=== PATIENT | male | born 1960 | race African-American/Black ===

== ENCOUNTER 2017-09-10 10:08 | Emergency (ER) | payer SELFPAY ==
--- NOTE | 2017-09-10 11:10 | RAD ---
AP VIEW OF CHEST: Date: 09/10/17 INDICATION: High risk complaint of chest pain. COMPARISON: Prior exam dated 01/31/09 and 12/28/09. FINDINGS: Lungs are clear. The cardiomediastinal silhouette is within normal limits. No acute osseous abnormali ty is evident. IMPRESSION: No acute cardiopulmonary process. POS: [facility]
[2017-09-10 11:18] LABS: #Basophils 0.1 thou/uL (0.0-0.2); #Eosinphils 0.4 thou/uL (0.0-0.7); #Lymphocytes 2.1 thou/uL (1.20-3.40); #Monocytes 0.3 thou/uL (0.11-0.59); #Neutrophils 1.6 thou/uL (1.40-6.50); %Basophils 1.3 % (0.0-1.0); %Eosinophils 8.5 % (0.0-10.0); %Lymphocytes 47.3 % (21.0-51.0); %Monocytes 7.3 % (0.0-10.0); Hematocrit 44.9 % (42.0-52.0); Macrocytosis MODERATE=16-30 cells (100X) (0-5/hpf); Mean Platelet Volume 7.6 fL (7.4-10.4); Red Blood Cell (RBC) Count 4.07 mill/uL (4.70-6.10); White Blood Cell (WBC) Count 4.5 thou/uL (4.8-10.8)
[2017-09-10 11:21] LABS: Troponin I 0.012 ng/mL (< 0.028)
[2017-09-10 11:57] LABS: ALT (SGPT) 17 U/L (8-55); AST (SGOT) 25 U/L (5-34); Alkaline Phosphatase 56 U/L (40-150); Anion Gap 6 mmol/L (10-20); BUN (Urea Nitrogen) 8 mg/dL (8.4-25.7); Bilirubin, Total 0.7 mg/dL (0.2-1.2); CK (CPK) 191 U/L (30-200); Calc. Creatinine Clearance 0 mL/min (70-130); Calcium 9.5 mg/dL (7.8-10.44); Carbon Dioxide 27 mmol/L (22-29); Chloride 110 mmol/L (98-107); Estimated GFR-MDRD Greater than 90; Globulin 3.2 g/dL (2.4-3.5)
== END 2017-09-10 12:52 | disposition home or self-care (01) ==
LOC: ERS 10:08
DX: J40 Bronchitis, not specified as acute or chronic (principal); F17.210 Nicotine dependence, cigarettes, uncomplicated
CPT/HCPCS: 36415; 71010; 80053; 82553; 84145; 84484; 85025; 93005; 99406

== ENCOUNTER 2018-02-23 22:16 | Inpatient (IN) | payer SELFPAY ==
[~2018-02-23 22:16] MED LIST: ISOVUE-370 76%-LOCM 1 ML ONE
[2018-02-23 23:12] LABS: Hemoglobin 14.1 g/dL (14.0-18.0); Mean Corpuscular HGB CONC 33.4 g/dL (32.0-36.0); Mean Corpuscular Hemoglobin 36.6 pg (27.0-31.0); Mean Platelet Volume 6.7 fL (7.4-10.4); Platelet Count 253 thou/uL (130-400); RBC Distribution Width 10.9 % (11.5-14.5); Red Blood Cell (RBC) Count 3.85 mill/uL (4.70-6.10); White Blood Cell (WBC) Count 5.6 thou/uL (4.8-10.8)
[2018-02-23 23:29] LABS: ALT (SGPT) 43 U/L (8-55); AST (SGOT) 60 U/L (5-34); Albumin 3.9 g/dL (3.5-5.0); Alkaline Phosphatase 54 U/L (40-150); Anion Gap 8 mmol/L (10-20); BUN (Urea Nitrogen) 14 mg/dL (8.4-25.7); Bilirubin, Total 0.4 mg/dL (0.2-1.2); CK (CPK) 190 U/L (30-200); Calc. Creatinine Clearance 0 mL/min (70-130); Calcium 8.9 mg/dL (7.8-10.44); Carbon Dioxide 25 mmol/L (22-29); Chloride 110 mmol/L (98-107); Estimated GFR-MDRD Greater than 90; Globulin 3.2 g/dL (2.4-3.5); Glucose 91 mg/dL (70-105); Potassium 4.3 mmol/L (3.5-5.1); Protein, Total 7.1 g/dL (6.0-8.3); Sodium 139 mmol/L (136-145)
[2018-02-23 23:30] LABS: CKMB 2.2 ng/mL (0-6.6); Troponin I Less than 0.010 ng/mL (< 0.028)
[2018-02-23] MEDS ORDERED: hydrALAZINE 20 MG/ML VIAL ONE (23:33)
--- NOTE | 2018-02-23 23:36 | CT ---
CT BRAIN WITHOUT CONTRAST: 02/23/18 HISTORY: Headache and hypertension. COMPARISON: CT brain from 2012. FINDINGS: There is abnormal subarachnoid hemorrhage in the basilar cisterns. There is hemorrhage along the tent orium cerebelli as well as the posterior falx. No loss of pan-white matter differentiation. IMPRESSION: Basilar cistern subarachnoid hemorrhage and extending along the posterior flax and tentorium cerebell i. Findings are concerning for an aneurysm rupture. Code CHAPARRITA - Marin Guerrier, 11:30 p.m. POS: [facility]
[2018-02-23 23:42] LABS: #Basophils 0.1 thou/uL (0.0-0.2); #Eosinphils 0.3 thou/uL (0.0-0.7); #Monocytes 0.4 thou/uL (0.11-0.59); #Neutrophils 2.8 thou/uL (1.40-6.50); %Basophils 1.4 % (0.0-1.0); %Lymphocytes 34.8 % (21.0-51.0); %Monocytes 7.2 % (0.0-10.0); %Neutrophils 50.6 % (42.0-75.0); MDiff Complete? YES; Macrocytosis SLIGHT = 6-15 cells (100X) (0-5/hpf)
[2018-02-24] MEDS ORDERED: Promethazine 25 MG TAB PO PRN (00:17)
[2018-02-24] MEDS ORDERED: Acetaminophen 500 MG TAB ONE (00:17)
[2018-02-24] MEDS ORDERED: Acetaminophen 325 MG TAB PO PRN (00:17)
[2018-02-24] MEDS ORDERED: Ondansetron HCl/PF 4 MG/2 ML Vial IVP PRN (00:17)
[2018-02-24] MEDS ORDERED: Milk Of Magnesia 30 ML UDCUP PO PRN (00:17)
[2018-02-24] MEDS ORDERED: diphenhydrAMINE 50 MG/ML VIAL IVP PRN (00:17)
[2018-02-24] MEDS ORDERED: Docusate 100 MG CAP PO PRN (00:17)
[2018-02-24] MEDS ORDERED: Mag-Al 1200 mg/1200 mg/30 ML UDCUP PO PRN (00:17)
[2018-02-24] MEDS ORDERED: Morphine 10 MG/ML VIAL ONE (00:58)
[2018-02-24] MEDS ORDERED: Aminocaproic Acid 5 GM in Sodium Chloride 0.9% 250 ML 250 ML IV SCH ×2 (01:00→02:00)
[2018-02-24 01:49] VITALS: BMI 19.1
[2018-02-24] MEDS: niMODipine 30 MG CAP PO SCH ×5 (02:27→17:21)
[2018-02-24] MEDS: Sodium Chloride 0.9% 1,000 ML IV SCH ×2 (02:29→12:38)
[2018-02-24 03:04] LABS: Troponin I Less than 0.010 ng/mL (< 0.028)
[2018-02-24] MEDS: Morphine 4 MG/ML VIAL SLOW IVP PRN ×2 (03:31→08:29)
[2018-02-24] MEDS: HYDROcodone/Acetaminophen 7.5/325 mg Tablet PO PRN ×3 (04:06→21:14)
[2018-02-24 05:43] LABS: Troponin I Less than 0.010 ng/mL (< 0.028)
--- NOTE | 2018-02-24 05:58 | HP ---
This is Kelley Ayala PA-C with neurosurgery service. ATTENDING PHYSICIAN: Dr. Devon Ha. HISTORY OF PRESENT ILLNESS: Patient is a 57-year-old male with past medical history of hypertension, who presented to the emergency department for evaluation of acute onset thunderclap headache, which began around 9:30 p.m. tonight with radiation into his neck while walking his dogs. He was evaluated with CT head on arrival, which is notable for diffuse subarachnoid blood located primarily in basila r cisterns consistent with subarachnoid hemorrhage. Neurosurgery was consulted for evaluation of the patient. I am seeing the patient at the bedside in the emergency department. He is A and O x4. Pu pils are equal and reactive to light. He has normal cranial nerve exam. No focal neurologic deficit s are appreciated. PAST MEDICAL HISTORY: Hypertension, noncompliant on medications. PAST SURGICAL HISTORY: Denies any prior surgeries. SOCIAL HISTORY: He is a daily drinker approximately 5 drinks per day. He does use drugs, abuses mar ijuana. He does smoke cigarettes 1 pack per day for the past 30 years. He is . ALLERGIES: No known drug allergies. REVIEW OF SYSTEMS: Per HPI. PHYSICAL EXAMINATION: VITAL SIGNS: BP 148/89, pulse is 59, respiration rate 16, O2 is 98% on room air. GENERAL: Awake, alert, no acute distress. HEAD: Normocephalic, atraumatic. EYES: PERRLA. Extraocular movements intact. ENT: Oral mucosa is pink, intact, and moist. He has normal voice. NECK: Nontender to palpation. He does have mild meningismus. RESPIRATORY: Symmetric chest expansion. No evidence of respiratory distress. CARDIOVASCULAR: Regular rate and rhythm. MUSCULOSKELETAL: Good muscle tone to bilateral upper and lower extremities. No focal motor weakness . NEURO: Alert and oriented x4. Normal speech. Normal cranial nerve exam. No focal motor weakness. ASSESSMENT AND PLAN: This is a 57-year-old -[place] male with a past medical history of hype rtension, noncompliant on medications, who presented tonight for thunderclap headache and was evaluat ed with CT which was found to have subarachnoid hemorrhage located primarily in the basilar cisterns. A CT is pending for further evaluation. I will admit the patient to the ICU for q.1 neuro checks a nd close monitoring. I have started the patient Amicar as well as Nimotop. Systolic blood pressure will be monitored closely with goal of less than 140. I have discussed this plan with Dr. Leland murphy ho is in agreement. Please reach out to Neurosurgery for additional questions or concerns.
--- NOTE | 2018-02-24 08:10 | PRG ---
DATE OF SERVICE: 02/24/2018 The patient was seen and examined. I agreed with Kelley Ayala's evaluation on 02/24/2018. Mr. De Los Santos is a 57-year-old man who had a thunderclap headache. There was a history of cocaine use. He is currently neurologically intact without focal findings. CT scan reveals subarachnoid hemorrha ge. This was stable on a follow up CT scan this morning. CT angiography was performed, but is of poor quality as the timing must have been off in the study. No aneurysm was visualized, but I do not think the study is conclusive. We will plan on repeat CT angiography today. We will advance the patient's diet. I discussed with t bud patient and his .
--- NOTE | 2018-02-24 08:15 | CON ---
DATE OF CONSULTATION: 02/24/2018 Don De Los Santos is a 57-year-old gentleman with history of heavy alcohol intake, history of regular coca ine intake, history of 2 packs a day smoking who has not been in the hospital except for a walking pn eum[place]. According to his he drinks a large quantity of beer. He went to the store yesterday, came back, got dizzy, lightheaded, fell down, had a severe headache. A CT of the head shows a subara chnoid hemorrhage. PAST MEDICAL HISTORY: As noted. No history of diabetes or hypertension. PAST SURGICAL HISTORY: None. CHRONIC MEDICATIONS: None. TOBACCO: As noted. ALCOHOL: Alcohol as noted. SOCIAL HISTORY: He is a mauro. REVIEW OF SYSTEMS: Otherwise, 10 point negative. PHYSICAL EXAMINATION: GENERAL: He is in the ICU, awake, alert, responsive. NEUROLOGIC: Stable. Moves all 4 extremities. VITAL SIGNS: Blood pressure 150/57, pulse is 57, sats 95% on room air, respiration rate 18. He is a febrile. CHEST: Chest reveals decreased breath sounds without any wheezing. CARDIAC: Normal S1, S2, no gallops. ABDOMEN: Soft, no masses. NEUROLOGIC: Awake, alert, responsive, moves all 4 extremities. No edema. LABORATORY: His white count is 5000, H&H 14 and 42, platelet count is 253. Electrolytes are normal. Liver function is normal. His CT brain from last night shows basilar subarachnoid hemorrhage. I do not see a chest x-ray that was taken. IMPRESSION: 1. Subarachnoid hemorrhage. 2. History of regular cocaine abuse. 3. History of heavy alcohol abuse. PLAN: The patient was started on Nimodipine 60 q.4h., nicardipine to keep his systolic as per the ne urosurgeon. X-ray is being ordered. Start him on some banana bag. Continue following in the ICU with Neurosurgery. Otherwise, supportive care. This is a consultation note in which 70 minutes was spent, 50% in direct patient care.
[2018-02-24] MEDS: Famotidine 20 MG TAB PO SCH ×2 (08:34→20:05)
[2018-02-24] MEDS: Multivitamin W/ Minerals 1 TAB PO SCH (08:34)
[2018-02-24] MEDS ORDERED: Famotidine/PF 20 mg/2ml Vial SLOW IVP SCH (09:00)
--- NOTE | 2018-02-24 10:09 | RAD ---
PORTABLE CHEST 1 VIEW: DATE: 02/24/18. TIME: 8:17 a.m. HISTORY: COPD. FINDINGS: Comparison is made with the exam of 09/10/17. The heart size is normal. The lungs are expanded without focal areas of consolidation, pneumothorax, or pleural effusions. There are degenerative changes in the acromioclavicular joints. IMPRESSION: No radiographic evidence of acute cardiopulmonary process. POS: [facility]
--- NOTE | 2018-02-24 10:12 | CT ---
PRELIMINARY REPORT/[facility]/EMERGENTY AFTER-HOURS PROCEDURE Addendum created by Alcon Rose MD on 02/24/2018 5:23 AM Central Time ([place] & [place]) 3 mm right tentorial subdural hematoma noted Addendum created by Alcon Rose MD on 02/24/2018 1:24 AM Central Time ([place] & [place]) THIS REPORT CONTA INS FINDINGS THAT MAY BE CRITICAL TO PATIENT CARE. The findings were verbally communicated via teleph one conference with Chey CLEMONS at 1:23 AM CDT on 02/24/2018. The findings were acknowledged and underst ood. Initial Report created on 02/24/2018 1:15 AM Central Time ([place] & [place]) CT Angiography Head With Intravenous Contrast CLINICAL HISTORY: 57 years old, male; Pain; Headache; Patient HX: 57 y/o m w/ no pmhx presents for evaluation of acute onset of headache located around his entire head and w/ radiation into the neck. Described as "like m y head is going to explode. Acute onset after walking to get some water around 2130 earlier tonight. No prior HX of migraines. No prior episodes of similar sxs. Denies any slurred speech, cp, S OB, unilateral weakness, facial droop. Pt has been smoking since he was 23. Not taking any medication s at home. Tried 500 mg of tylenol w/o improvement prior to arrival to ed. Denies any associated phot o/phonophobia. Worse with sitting up and improved with laying down. TECHNIQUE: Axial computed tomographic angiography images of the head with intravenous contrast using CT angiogra phy protocol. MIP reconstructed images were created and reviewed. COMPARISON: No relevant prior studies available. FINDINGS: Limited evaluation of the posterior circulation due to overlying subarachnoid hemorrhage. The proxima l vertebral arteries are unremarkable. Atherosclerosis in the internal carotid arteries. The anterior circulation is grossly patent. No larg e aneurysm or AVM detected Subarachnoid hemorrhage in the prepontine interpeduncular and perimesencephalic/quadrigeminal plate c isterns noted. Questionable area of decreased attenuation in the interpeduncular fossa on image 53 an d possible clots on image 13 series 2 Minimal prominence of the temporal horns. No acute territorial infarction or calvarial fracture. The paranasal sinuses and mastoid cavities are grossly clear IMPRESSION: Subarachnoid hemorrhage as noted with question minimal prominence to the temporal horn which may represent early hydrocephalus Limited evaluation of the posterior circulation as described. No large aneurysm or AVM. Distal basila r aneurysm cannot be completely excluded. Further evaluation recommended Thank you for allowing us to participate in the care of your patient. Dictated and Authenticated by: Alcon Rose MD 02/24/2018 1:15 AM Central Time ([place] & [place]) FINAL REPORT CT ANGIO HEAD: Axial tomograms were obtained with multiplanar reconstruction and 3D post processing. Subarachnoid hemorrhage to the base of the brain is noted as previously described. Basilar artery is not adequate evaluated on this exam due to subarachnoid blood. No aneurysm seen involving anterior cerebral and middle cerebral arteries. Posterior communicators are also obscured. I am in agreement with the preliminary report. POS: [facility]
--- NOTE | 2018-02-24 10:27 | CT ---
CT HEAD WITH AND WITHOUT CONTRAST: TECHNIQUE: Multiple axial tomograms were obtained through the head without IV enhancement. This was followed by postcontrast images performed with cerebral angio protocol with multiplanar reconstruction and 3D po stprocessing. INDICATION: Subarachnoid hemorrhage. COMPARISON: Comparison is made to a CT Head performed 02/23/18, 11:27 p.m. FINDINGS: NONCONTRAST CT HEAD: Subarachnoid hemorrhage base of the brain is again noted, more prominent to the right. There is bloo d in the paramedian cephalic cistern and in the interpeduncular cistern anteriorly and along the circ le of [place]pard more prominent on the right, unchanged from prior exam. Ventricular size remains within normal range and stable. CT ANGIO BRAIN: The intracranial internal carotid arteries appear unremarkable. There is a dominant A1 segment on th e left. A2 segments joint and there is a single anterior cerebral artery trunk. No evidence of ante rior communicator aneurysm. The left posterior communicator is not identified. The right posterior communicator is hazy but is f aintly identified. No definite aneurysm is seen at this site, although this would be a suspected sit e of an aneurysm on the right. A right [employer] NURSE aneurysm that has thrombosed is a consideration. No defi nite aneurysm is visible on this exam. The middle cerebral arteries, basilar artery, and posterior c erebral arteries appear unremarkable. IMPRESSION: No evidence of aneurysm on this study. POS: [facility]
--- NOTE | 2018-02-24 10:35 | CT ---
PRELIMINARY REPORT/[facility]/EMERGENTY AFTER-HOURS PROCEDURE CT Head Without Intravenous Contrast CLINICAL HISTORY: 57 years old, male; Pain; Headache; Headache not specified; Patient HX: Er4; 57 y/o m w/ no pmhx pres ents for evaluation of acute onset of headache located around his entire head and w/ radiation into t he neck. Described as "like my head is going to explode: . Acute onset after walking to get some water around 2130 earlier tonight. No prior HX of migraines. No prior episodes of similar sxs. Denies any slurred speech, cp, SOB, unilateral weakness, facial droop. Pt has been smoking since he was 23. Not taking any medications at home. Tried 500 mg of tylenol w/o improvement prior to arrival to e d. Denies any associated photo/phonophobia. Worse with sitting up and improved with laying down. Er4; 57 y/o m w/ no pmhx presents for evaluation of acute onset of headache located around his entire head and w/ radiation into the neck. Described as "like my head is going to explode: . Acute o nset after walking to get some water around 2130 earlier tonight. No prior HX of migraines. No prior episodes of similar sxs. Denies any slurred speech, cp, SOB, unilateral weak TECHNIQUE: Axial computed tomography images of the head/brain without intravenous contrast. COMPARISON: CTA Angio Head W WO Con 2018-02-24 00:33 FINDINGS: Moderate subarachnoid hemorrhage in the basal cancer but sellar cisterns. Small right-sided subdural hematoma better appreciated. Mild hydrocephalus. No calvarial fracture or midline shift. No acute ter ritorial infarction noted. The paranasal sinuses and mastoid cavities are grossly clear IMPRESSION: Grossly stable subarachnoid/subdural hemorrhages and mild hydrocephalus Thank you for allowing us to participate in the care of your patient. Dictated and Authenticated by: Alcon Rose MD 02/24/2018 5:23 AM Central Time ([place] & [place]) FINAL REPORT CT BRAIN: Final report. Preliminary exam was performed by [facility]. I concur with the dictation from [facility]. Subarachnoid blood is seen in the suprasellar ci dickinson regions as well as the right and left inferior subarachnoid space adjacent to the course of the [place] of Shepard more prominent on the right than on the left. Subarachnoid blood is also seen in t he prepontine cistern. Some areas of hyperdensity are also seen along the right and left tentorium c ompatible with subdural hematomas. POS: [facility]
--- NOTE | 2018-02-24 12:13 | PDOC.PN ---
- Subjective Encounter Start Date: 02/24/18 Encounter Start Time: 11:00 Patient is seen today, alert and oriented. He is Admited with Subarachnoide hemorrhage from his Crack Coain use, which the patient admitted, he is Not showing any Neuro deficits, now, he is Able to talk and move his extemitis, he rates his pain as 8/10 not much change since his admission, he is on Aminocaproic acid and Nimidipine to control the blleding. Nicardipine to Keep Ssyltolic <140. He has known h/o HTN and never takes his medication , he is very noncompliant and he accepts that. - Objective MAR Reviewed: Yes Vital Signs & Weight: Vital Signs (12 hours) Temp Pulse Resp Pulse Ox 02/24/18 08:00 98.1 F 60 16 02/24/18 04:00 98.3 F 02/24/18 02:00 98.2 F 57 L 16 98 Most Recent Monitor Data Heart Rate from ECG 58 NIBP 111/60 NIBP BP-Mean 82 Respiration from ECG 17 SpO2 99 I&O: 02/23/18 02/24/18 02/25/18 06:59 06:59 06:59 Intake Total 669 300 Output Total 1300 900 Balance -631 -600 Result Diagrams: 02/23/18 22:56 02/23/18 22:56 Radiology Reviewed by me: Yes Phys Exam - Physical Examination HEENT: PERRLA, moist MMs Neck: no nodes, no JVD Respiratory: no wheezing, no rales Cardiovascular: RRR, no significant murmur Gastrointestinal: soft, non-tender Musculoskeletal: no edema, pulses present Neurological: non-focal, moves all 4 limbs Lymphatic: no nodes Psychiatric: normal affect, A&O x 3 Dx/Plan (1) Cocaine abuse with cocaine-induced disorder Code(s): F14.19 - COCAINE ABUSE WITH UNSPECIFIED COCAINE-INDUCED DISORDER Status: Acute Comment: Pt agreed to stop Cocoain, spent 15 min counsilling to Quit. (2) HTN, goal below 140/80 Code(s): I10 - ESSENTIAL (PRIMARY) HYPERTENSION Status: Acute Comment: PT is on Nicardipine Drip to keep Ssyolic <140, also on Nimodipine for hemorrhage. No BB due to Cocoain in suytem and pt is bradycardic from hemorrhage. (3) Subarachnoid hemorrhage Code(s): I60.9 - NONTRAUMATIC SUBARACHNOID HEMORRHAGE, UNSPECIFIED Status: Acute Comment: Pt was given loading dose of Aminocaprin, Will monitor bandar Along with Dr. Matthews. (4) Alcohol abuse Code(s): F10.10 - ALCOHOL ABUSE, UNCOMPLICATED Status: Acute Comment: Pt is on THimine, will do Folic Acid and MVit, will monitor and watch for Alcohol withdrawl, pt is not on Seizure meds for prophylaxis, with Bleed and h/o Alcohol abuse. - Plan cont current plan of care, lion catheter, social media director, DVT proph w/SCDs * . - Discharge Day Encounter end time: 11:45 Review of Systems - Review of Systems Constitutional: weakness Eyes: negative: Pain, Vision Change, Conjunctivae Inflammation, Eyelid Inflammation, Redness, Other ENT: negative: Ear Pain, Ear Discharge, Nose Pain, Nose Discharge, Nose Congestion, Mouth Pain, Mouth Swelling, Throat Pain, Throat Swelling, Other Respiratory: negative: Cough, Dry, Shortness of Breath, Hemoptysis, SOB with Excertion, Pleuritic Pain, Sputum, Wheezing Cardiovascular: negative: chest pain, palpitations, orthopnea, paroxysmal nocturnal dyspnea, edema, light headedness, other Gastrointestinal: negative: Nausea, Vomiting, Abdominal Pain, Diarrhea, Constipation, Melena, Hematochezia, Other Musculoskeletal: negative: Neck Pain, Shoulder Pain, Arm Pain, Back Pain, Hand Pain, Leg Pain, Foot Pain, Other Skin: negative: Rash, Lesions, Leon, Bruising, Other Neurological: Weakness - Medications/Allergies Allergies/Adverse Reactions: Allergies Allergy/AdvReac Type Severity Reaction Status Date / Time No Known Drug Allergies Allergy Verified 02/24/18 01:48 Medications: Current Medications Acetaminophen (Tylenol) 650 mg PO Q6H PRN PRN Reason: Headache/Fever or Pain Hydrocodone Bitart/Acetaminophen ([place] 7.5/325) 1 tab PO Q4H PRN PRN Reason: Moderate Pain (4-6) Last Admin: 02/24/18 04:06 Dose: 1 tab Al Hydroxide/Mg Hydroxide (Maalox) 30 ml PO Q6H PRN PRN Reason: Indigestion Diphenhydramine HCl (Benadryl) 50 mg IVP Q6H PRN PRN Reason: Itching Docusate Sodium (Colace) 100 mg PO BIDPRN PRN PRN Reason: Constipation Famotidine (Pepcid) 20 mg PO BID [facility] Last Admin: 02/24/18 08:34 Dose: 20 mg Sodium Chloride (Normal Saline 0.9%) 1,000 mls @ 80 mls/hr IV .[id number] [facility] Last Admin: 02/24/18 02:29 Dose: 1,000 mls Nicardipine HCl 25 mg/ Sodium (Chloride) 260 mls @ 0 mls/hr IVPB INF JALEN; Titrate PRN Reason: Protocol Last Admin: 02/24/18 08:35 Dose: 260 mls Iron/Minerals/Multivitamins (Theragran M) 1 tab PO DAILY [facility] Last Admin: 02/24/18 08:34 Dose: 1 tab Magnesium Hydroxide (Milk Of Magnesium) 30 ml PO BIDPRN PRN PRN Reason: Constipation Morphine Sulfate (Morphine) 2 mg SLOW IVP Q1H PRN PRN Reason: Moderate Pain (4-6) Last Admin: 02/24/18 08:29 Dose: 2 mg Nimodipine (Nimodipine) 60 mg PO Q4HR [facility] Last Admin: 02/24/18 08:34 Dose: 60 mg Ondansetron HCl (Zofran) 4 mg IVP Q6H PRN PRN Reason: Nausea/Vomiting Promethazine HCl (Phenergan) 25 mg PO Q4H PRN PRN Reason: Nausea/Vomiting Thiamine HCl (Thiamine) 100 mg PO DAILY [facility] Stop: 02/26/18 09:01 Last Admin: 02/24/18 08:34 Dose: 100 mg
[2018-02-24] MEDS ORDERED: ISOVUE-370 76%-LOCM 1 ML ONE (13:05)
[2018-02-24] MEDS ORDERED: hydrALAZINE 20 MG/ML VIAL SLOW IVP PRN (18:18)
[2018-02-25] MEDS: Sodium Chloride 0.9% 1,000 ML IV SCH ×3 (02:31→19:40)
[2018-02-25] MEDS: HYDROcodone/Acetaminophen 7.5/325 mg Tablet PO PRN ×2 (03:05→13:51)
[2018-02-25] MEDS: Multivitamin W/ Minerals 1 TAB PO SCH (10:12)
[2018-02-25] MEDS: Famotidine 20 MG TAB PO SCH ×2 (10:12→21:40)
[2018-02-25] MEDS ORDERED: Gadobenate Dimeglumine 529 MG/1 ML (20ML VIAL) ONE (12:18)
--- NOTE | 2018-02-25 12:54 | MRI ---
PRE AND POSTCONTRAST ENHANCED MRI IMAGES BRAIN: HISTORY: Patient with subarachnoid hemorrhage. FINDINGS: Pre- and post-contrast enhanced MRI images of brain obtained. MRI images demonstrate areas of increased signal changes in the subarachnoid space on the FLAIR weigh nayan sequences in the right and left parietal and parietooccipital regions. Areas of increased signal also seen in the 4th ventricle as well as some along the subarachnoid space of the right and left ce rebellar hemisphere superiorly. No abnormal areas of enhancement seen intracranially or in the subarachnoid space. No evidence of areas of diffusion restriction seen to suggest acute strokes. No other masses or lesi ons seen. IMPRESSION: Areas of increased signal on FLAIR sequences in the subarachnoid space. No other acute abnormality i s seen. Findings compatible with subarachnoid hemorrhage. No evidence of hydrocephalus is seen. POS: [facility]
--- NOTE | 2018-02-25 13:43 | PRG ---
DATE OF SERVICE: 02/26/2018 SUBJECTIVE: A 57-year-old gentleman. This morning, he is awake, alert, responsive, no headache, no shortness of breath. OBJECTIVE: VITAL SIGNS: Sats 98% room air, temperature 98, pulse 55, blood pressure 139/87. CHEST: No wheezing or crackles. CARDIAC: Normal S1, S2. No gallops. ABDOMEN: Soft, no mass. IMPRESSION: Subarachnoid hemorrhage, probably secondary to cocaine abuse. The patient appears to be stable. PLAN: Otherwise, no issues. Pulmonary critical care will follow at a distance. DISPOSITION: As per primary care physician.
--- NOTE | 2018-02-25 14:26 | PRG ---
DATE OF SERVICE: 02/25/2018 SUBJECTIVE: Mr. De Los Santos is doing quite well. He has continued to complain of headache, but is tolera ting a full diet and ambulating independently. CT angiography repeated yesterday was much better juancarlos lity and confirmed absence of intracranial aneurysm or other vascular abnormality to explain subarach noid hemorrhage. We will get an MRI of the brain today. Assuming this is negative, I have no plans for further invest igations. He can be mobilized and discharged and I anticipate this could be tomorrow. I will make a rrangements for followup CT scan and evaluation in the office in 4 weeks.
[2018-02-26 08:06] VITALS: BP 145/91; TEMP 98.2
[2018-02-26] MEDS: Famotidine 20 MG TAB PO SCH (08:14)
[2018-02-26] MEDS: Multivitamin W/ Minerals 1 TAB PO SCH (08:14)
--- NOTE | 2018-02-26 11:41 | PDOC.PN ---
- Subjective Encounter Start Date: 02/25/18 Encounter Start Time: 09:00 Patient was seen today, No headache, Alert and oriented. - Objective MAR Reviewed: Yes Vital Signs & Weight: Vital Signs (12 hours) Temp Pulse Resp BP Pulse Ox 02/26/18 08:20 98.2 F 60 18 100 02/26/18 08:00 98.2 F 60 18 145/91 H 100 02/26/18 03:31 98.3 F 56 L 16 134/86 99 Weight Weight 116 lb 9.6 oz Most Recent Monitor Data Heart Rate from ECG 53 NIBP 123/62 NIBP BP-Mean 89 Respiration from ECG 19 SpO2 98 I&O: 02/25/18 02/26/18 02/27/18 06:59 06:59 06:59 Intake Total 2911 1400 Output Total 2875 885 Balance 36 515 Result Diagrams: 02/23/18 22:56 02/23/18 22:56 Radiology Reviewed by me: Yes Phys Exam - Physical Examination HEENT: PERRLA, moist MMs Neck: no nodes, no JVD Respiratory: no wheezing, no rales Cardiovascular: RRR, no significant murmur Gastrointestinal: soft, non-tender Musculoskeletal: no edema, pulses present Neurological: non-focal, normal sensation Lymphatic: no nodes Psychiatric: normal affect Dx/Plan (1) Cocaine abuse with cocaine-induced disorder Code(s): F14.19 - COCAINE ABUSE WITH UNSPECIFIED COCAINE-INDUCED DISORDER Status: Acute Comment: Pt agreed to stop Cocoain, spent 15 min counsilling to Quit. (2) HTN, goal below 140/80 Code(s): I10 - ESSENTIAL (PRIMARY) HYPERTENSION Status: Acute Comment: PT is on Nicardipine Drip to keep Ssyolic <140, also on Nimodipine for hemorrhage. No BB due to Cocoain in suytem and pt is bradycardic from hemorrhage. (3) Subarachnoid hemorrhage Code(s): I60.9 - NONTRAUMATIC SUBARACHNOID HEMORRHAGE, UNSPECIFIED Status: Acute Comment: Pt was given loading dose of Aminocaprin, Will monitor bandar Along with Dr. Renteria. (4) Alcohol abuse Code(s): F10.10 - ALCOHOL ABUSE, UNCOMPLICATED Status: Acute Comment: Pt is on THimine, will do Folic Acid and MVit, will monitor and watch for Alcohol withdrawl, pt is not on Seizure meds for prophylaxis, with Bleed and h/o Alcohol abuse. - Plan cont current plan of care, PT/OT, social work nurse, respiratory therapy, incentive spirometry * . Review of Systems - Review of Systems Eyes: negative: Pain, Vision Change, Conjunctivae Inflammation, Eyelid Inflammation, Redness, Other ENT: negative: Ear Pain, Ear Discharge, Nose Pain, Nose Discharge, Nose Congestion, Mouth Pain, Mouth Swelling, Throat Pain, Throat Swelling, Other Respiratory: negative: Cough, Dry, Shortness of Breath, Hemoptysis, SOB with Excertion, Pleuritic Pain, Sputum, Wheezing Cardiovascular: negative: chest pain, palpitations, orthopnea, paroxysmal nocturnal dyspnea, edema, light headedness, other Musculoskeletal: negative: Neck Pain, Shoulder Pain, Arm Pain, Back Pain, Hand Pain, Leg Pain, Foot Pain, Other Skin: negative: Rash, Lesions, Leon, Bruising, Other - Medications/Allergies Allergies/Adverse Reactions: Allergies Allergy/AdvReac Type Severity Reaction Status Date / Time No Known Drug Allergies Allergy Verified 02/24/18 01:48
--- NOTE | 2018-02-27 15:22 | EKG ---
Test Reason : HTN AND HEADACHE Blood Pressure : / mmHG Vent. Rate : 053 BPM Atrial Rate : 053 BPM P-R Int : 190 ms QRS Dur : 084 ms QT Int : 428 ms P-R-T Axes : 078 074 072 degrees QTc Int : 401 ms Sinus bradycardia Otherwise normal ECG Confirmed by NESSA CLEMONS, BLANCA Patel ([id number]), editor index ANGEL CHAU ([id number]) on 02/27/2018 3:22:45 PM Referred By: [email or web address] Confirmed By:BLANCA SZYMANSKI MD
== END 2018-02-26 09:08 | disposition home or self-care (01) | DRG 66 ==
LOC: ERS 22:16 → CCU 02-24 00:17 → 2SE 02-24 20:16
PROVIDERS: ADMIT Emergency Medicine Emergency Medical Services; ATTEND Emergency Medicine Emergency Medical Services
DX: I60.4 Nontraumatic subarachnoid hemorrhage from basilar artery (principal); I10 Essential (primary) hypertension; F17.210 Nicotine dependence, cigarettes, uncomplicated; Z91.14 Patient's other noncompliance with medication regimen; F14.19 Cocaine abuse with unspecified cocaine-induced disorder
CPT/HCPCS: 36415; 70450; 70496; 70553; 71045; 80053; 82550; 82553; 84484; 85025; 93005; 96374; A9579; G8978-GP-CL; G8979-GP-CJ; G8987-GO-CI; G8988-GO-CI; G8989-GO-CI; G8996-GN-CH; G8997-GN-CH; J0360; J2270; J7050; S0017

== ENCOUNTER 2021-08-10 09:02 | Emergency (ER) | payer SELFPAY ==
[2021-08-10] MEDS ORDERED: Acetaminophen 500 MG TAB ONE (09:35)
[2021-08-10] MEDS ORDERED: Ketorolac Tromethamine 30 MG/ML VIAL ONE (09:35)
[2021-08-10 09:53] LABS: Bacteria/HPF None Seen HPF (None Seen); Bilirubin Negative (Negative); Blood, Urine Negative (Negative); Clarity Clear (Clear); Glucose, Urine (Dipstick) Normal (Negative); Ketone, Urine 20 mg/dL (Negative); Leukocyte 250 Leu/uL (Negative); Nitrite Negative (Negative); Protein, Urine (Dipstick) Negative (Neg-Trace); RBC/HPF 0-3 HPF (0-3); Squamous Epithelial 0-3 HPF (0-3); Urobilinogen Normal mg/dL (Less than 2); pH, Urine 5.5 (5.0-9.0)
== END 2021-08-10 10:41 | disposition home or self-care (01) ==
LOC: ERS 09:02
DX: N39.0 Urinary tract infection, site not specified (principal); R05.9 Cough, unspecified; Z86.73 Personal history of transient ischemic attack (TIA), and cerebral infarction without residual deficits; F17.210 Nicotine dependence, cigarettes, uncomplicated
CPT/HCPCS: 71045; 81003; 81015; 87086; 96372; J1885